=== PATIENT | female | born 1945 | race Caucasian/White ===

== ENCOUNTER → 2017-10-03 | Outpatient (RCR) | payer MEDICARE, OTHER ==
[~2017-10-03] MED LIST: ALLEGRA ALLERGY60 MG; ALLEGRA-D 12 H1 EACH PO; ALPRAZOLAM0.25 MG PO; AMLODIPINE BESYL5 MG PO; ARMOUR THYROID30 MG PO; ARMOUR THYROID60 MG PO; ASPIR 8181 MG PO; ATORVASTATIN CA40 MG PO; BRILINTA90 MG; BRILINTA90 MG PO; CLONAZEPAM0.5 MG PO; CLOTRIMAZOLE/BETAMETHASONE 45 GM CR TP ONE; COMBIVENT INH14.7 GM INH; COMBIVENT RESPIM4 GM IH; COMBIVENT RESPIM4 GM INH; CYCLOBENZAPRINE10 MG PO; DULERA 100 MCG/13 GM IH; EXCEDRIN EXTRA1 EAC1 PO; EXCEDRIN PM 501 EAC1 PO; FENOFIBRATE145 MG PO; FLUTICASONE PRO16 GM; FUROSEMIDE20 MG PO; HYDROCHLOROTHIA25 MG PO; HYDROCODON-ACE1 EAC9 PO; KEFLEX500 MG PO; LIDOCAINE VISC 2% SOLN 15 ML UDC ONE; LOVAZA1 GM PO; METFORMIN HCL500 MG PO; METOPROLOL SUCC25 MG PO; MIDODRINE HCL2.5 MG PO; MIDODRINE HCL5 MG PO; MIRAPEX0.25 MG PO; MUCINEX1200 MG PO; MUPIROCIN 2% OINT 22 GM TUBE ONE; NAPROXEN SODIU220 MG PO; NEURONTIN800 MG PO; NIACIN500 MG PO; NORCO 10-325 T1 EACH PO; OMEPRAZOLE40 MG PO; ONGLYZA5 MG PO; PRAMIPEXOLE D0.25 MG PO; PRAVACHOL20 MG PO; PRIMATENE ASTH1 EACH; PRIMATENE ASTH1 EACH PO; PRIMIDONE50 MG PO; QUETIAPINE FUMA50 MG PO; SERTRALINE HCL100 MG PO; TRAMADOL HCL100 MG PO; TRIAMCINOLONE A15 G4 TP; VERAMYST10 GM INH; WAL-PROXEN220 MG PO; ZYRTEC10 M3 PO; ZYRTEC10 MG PO
== END ==
LOC: WCC 09-07 12:09
PROVIDERS: ATTEND Family Medicine
DX: E11.622 Type 2 diabetes mellitus with other skin ulcer (principal); S51.802A Unspecified open wound of left forearm, initial encounter; S51.801A Unspecified open wound of right forearm, initial encounter; S71.102A Unspecified open wound, left thigh, initial encounter; S71.101A Unspecified open wound, right thigh, initial encounter; S81.002A Unspecified open wound, left knee, initial encounter; S81.001A Unspecified open wound, right knee, initial encounter; S81.802A Unspecified open wound, left lower leg, initial encounter; S91.002A Unspecified open wound, left ankle, initial encounter; S91.001A Unspecified open wound, right ankle, initial encounter; G89.4 Chronic pain syndrome; L27.0 Generalized skin eruption due to drugs and medicaments taken internally; D50.8 Other iron deficiency anemias; F33.1 Major depressive disorder, recurrent, moderate; I10 Essential (primary) hypertension; I25.10 Atherosclerotic heart disease of native coronary artery without angina pectoris; J44.9 Chronic obstructive pulmonary disease, unspecified; K21.9 Gastro-esophageal reflux disease without esophagitis; E03.8 Other specified hypothyroidism; G47.33 Obstructive sleep apnea (adult) (pediatric)
CPT/HCPCS: 36415; 82948

== ENCOUNTER 2017-10-31 09:26 | Outpatient (RCR) | payer MEDICARE, OTHER ==
[2017-10-17 15:13] LABS: BASOPHILS # (AUTO) 0.1 (0.0-0.1); BASOPHILS % 0.5 % (0.0-1.0); EOSINOPHILS # (AUTO) 0.2 (0.0-0.4); EOSINOPHILS % 1.8 % (0.0-6.0); HEMATOCRIT 32.3 % (34.2-44.1); HEMOGLOBIN 9.7 g/dL (12.0-16.0); LYMPHOCYTES # (AUTO) 2.4 (1.0-3.2); LYMPHOCYTES % 24.6 % (18.0-39.1); MEAN CORPUSCULAR HEMOGLOBIN 24.6 pg (28-32); MONOCYTES # (AUTO) 0.7 (0.2-0.8); MONOCYTES % 7.3 % (4.4-11.3); NEUTROPHILS # (AUTO) 6.4 (2.1-6.9); NEUTROPHILS % 65.4 % (38.7-80.0); PLATELET COUNT 370 x10e3/uL (140-360); RED BLOOD COUNT 3.94 x10e6/uL (3.6-5.1); RED CELL DISTRIBUTION WIDTH 17.7 % (11.7-14.4)
[2017-10-17 15:30] LABS: ANION GAP 11.3 mmol/L (8-16); BLOOD UREA NITROGEN 12 mg/dL (7-26); BUN/CREATININE RATIO 17 (6-25); CALCIUM 8.6 mg/dL (8.4-10.2); CARBON DIOXIDE 29 mmol/L (22-29); CHLORIDE 101 mmol/L (98-107); CREATININE, SERUM 0.71 mg/dL (0.57-1.11); EST GLOMERULAR FILTRATION RATE > 60 ML/MIN (60-); GLUCOSE 147 mg/dL (74-118); POTASSIUM 4.3 mmol/L (3.5-5.1); SODIUM 137 mmol/L (136-145)
[~2017-10-31 09:26] MED LIST changes: -CLOTRIMAZOLE/BETAMETHASONE 45 GM CR TP ONE; +COLLAGENASE OINTMENT 30 GM TUBE ONE
[2017-10-31] MEDS ORDERED: LIDOCAINE VISC 2% SOLN 15 ML UDC ONE (13:39)
[2017-10-31] MEDS ORDERED: COLLAGENASE OINTMENT 30 GM TUBE ONE (13:39)
[2017-10-31] MEDS ORDERED: MUPIROCIN 2% OINT 22 GM TUBE ONE (13:39)
== END 2017-11-03 ==
LOC: WCC 09:26
PROVIDERS: ATTEND Family Medicine
DX: E11.622 Type 2 diabetes mellitus with other skin ulcer (principal); S51.802A Unspecified open wound of left forearm, initial encounter; S51.801A Unspecified open wound of right forearm, initial encounter; S71.102A Unspecified open wound, left thigh, initial encounter; S71.101A Unspecified open wound, right thigh, initial encounter; S81.002A Unspecified open wound, left knee, initial encounter; S81.001A Unspecified open wound, right knee, initial encounter; S81.802A Unspecified open wound, left lower leg, initial encounter; S81.801A Unspecified open wound, right lower leg, initial encounter; S91.002A Unspecified open wound, left ankle, initial encounter; S91.001A Unspecified open wound, right ankle, initial encounter; F42.4 Excoriation (skin-picking) disorder; L27.0 Generalized skin eruption due to drugs and medicaments taken internally; G89.4 Chronic pain syndrome; I10 Essential (primary) hypertension; D50.8 Other iron deficiency anemias; E03.8 Other specified hypothyroidism; F33.1 Major depressive disorder, recurrent, moderate; F41.9 Anxiety disorder, unspecified; G47.33 Obstructive sleep apnea (adult) (pediatric); I25.10 Atherosclerotic heart disease of native coronary artery without angina pectoris; J44.9 Chronic obstructive pulmonary disease, unspecified; K21.9 Gastro-esophageal reflux disease without esophagitis
CPT/HCPCS: 36415; 80048; 82948; 83036; 84134; 85025; 88302; 88304

== ENCOUNTER → 2018-01-09 | Outpatient (CLI) | payer MEDICARE, OTHER ==
[~2018-01-09] MED LIST changes: -COLLAGENASE OINTMENT 30 GM TUBE ONE; +FENTANYL CITRATE/PF 100MCG/2 ML INJ ONE; -LIDOCAINE VISC 2% SOLN 15 ML UDC ONE; -MUPIROCIN 2% OINT 22 GM TUBE ONE
== END ==
LOC: MAMMO 10:26
PROVIDERS: ATTEND Internal Medicine
DX: Z12.31 Encounter for screening mammogram for malignant neoplasm of breast (principal)
CPT/HCPCS: 77067

== ENCOUNTER → 2019-02-04 | Outpatient (CLI) | payer MEDICARE, OTHER ==
[~2019-02-04] MED LIST changes: -FENTANYL CITRATE/PF 100MCG/2 ML INJ ONE
--- NOTE | 2019-02-17 08:40 | Diagnostic Imaging Report ---
#[id number] - MGSCRBIL #BILATERAL DIGITAL SCREENING MAMMOGRAM WITH CAD: 02/04/2019 CLINICAL: Routine screening. Comparison is made to exams dated: 01/09/2018 mammogram and 09/04/2016 mammogram - [facility]. Current study contains 4 films. There are scattered fibroglandular elements in both breasts. Current study was also evaluated with a Computer Aided Detection (CAD) system. There are benign vascular calcifications in both breasts. No significant masses, calcifications, or other findings are seen in either breast. IMPRESSION: BENIGN There is no mammographic evidence of malignancy. A 1 year screening mammogram is recommended. The patient will be notified by letter of the results. BETZY COLINDRES M.D. ct/penrad:02/14/2019 14:22:03 Staff Accountant: Lynda SALEH)([place]), [facility] letter sent: Normal Exam Mammogram BI-RADS: 2 Benign
== END ==
LOC: MAMMO 10:54
PROVIDERS: ATTEND Internal Medicine
DX: Z12.31 Encounter for screening mammogram for malignant neoplasm of breast (principal)
CPT/HCPCS: 77067

== ENCOUNTER 2021-05-11 08:07 | Inpatient (IN) | payer MEDICARE, OTHER ==
[~2021-05-11] VITALS: Ht 160 cm; Wt 73.5 kg
[2021-05-11] MEDS ORDERED: METHYLPREDNISOLONE SOD SUCC 125 MG/2ML VIAL IV STA (08:10)
[2021-05-11] MEDS ORDERED: IPRATROPIUM BROMIDE 0.02% 2.5 ML NEB NEB STA (08:10)
[2021-05-11] MEDS ORDERED: ALBUTEROL SULF 0.083% NEB SOLN 3 ML NEB NEB STA (08:10)
[2021-05-11 08:29] LABS: BASOPHILS % 0.2 % (0.0-1.0); HEMATOCRIT 28.2 % (34.2-44.1); LYMPHOCYTES # (AUTO) 1.8 (1.0-3.2); MEAN CORPUSCULAR HEMOGLOBIN 18.7 pg (28-32); MEAN CORPUSCULAR HGB CONC 28.4 g/dL (31-35); MEAN CORPUSCULAR VOLUME 65.9 fL (81-99); MONOCYTES # (AUTO) 1.5 (0.2-0.8); MONOCYTES % 7.5 % (4.4-11.3); NEUTROPHILS # (AUTO) 16.6 (2.1-6.9); NEUTROPHILS % 82.6 % (38.7-80.0); PLATELET COUNT 1084 x10e3/uL (140-360); RED BLOOD COUNT 4.28 x10e6/uL (3.6-5.1); RED CELL DISTRIBUTION WIDTH 23.2 % (11.7-14.4)
[2021-05-11 08:43] LABS: INR 1.99; PROTHROMBIN TIME 22.9 seconds (11.9-14.5)
[2021-05-11 08:49] LABS: ALBUMIN 3.4 g/dL (3.5-5.0); ALBUMIN/GLOBULIN RATIO 0.8 (0.8-2.0); ANION GAP 28.7 mmol/L (8-16); CALCIUM 7.6 mg/dL (8.4-10.2); CREATININE, SERUM 2.96 mg/dL (0.57-1.11); POTASSIUM 4.7 mmol/L (3.5-5.1)
[2021-05-11] MEDS ORDERED: CEFTRIAXONE 1 GM in SODIUM CHLORIDE 0.9% 50ML 50 ML IV SCH (10:00)
[2021-05-11 11:31] LABS: LYMPHOCYTES % (MANUAL) 12 % (19-48); MONOCYTES % (MANUAL) 2 % (3.4-9.0); NEUTROPHILS % (MANUAL) 85 % (40-74); NUCLEATED RED BLOOD CELLS 3; PLATELET ESTIMATE MARKEDLY INCREASED
[2021-05-11 11:32] LABS: ANISOCYTOSIS 1; HYPOCHROMASIA 2; PLATELET MORPHOLOGY COMMENT NORMAL; POIKILOCYTOSIS 1; RBC MORPHOLOGY COMMENT ABNORMAL
[2021-05-11 11:33] LABS: ELLIPTOCYTE, RBC SLIGHT; OVALOCYTES FEW
[2021-05-11] MEDS ORDERED: BUMETANIDE INJ 0.25MG/ML 4ML VIAL IV ONE (12:30)
[2021-05-11] MEDS ORDERED: Vancomycin IV 1 GM in SODIUM CHLORIDE 0.9% 250ML 250 ML IV ONE (12:30)
[2021-05-11 12:44] LABS: CREATININE,URINE RANDOM 87.81 mg/dL (47-110)
[2021-05-11 12:45] LABS: SODIUM,URINE < 20 mmol/L
[2021-05-11] MEDS ORDERED: LIDOCAINE HCL 1% LOCAL INJ 20 ML VIAL ONE (13:24)
[2021-05-11] MEDS ORDERED: HEPARIN SOD (PORCINE) 1000 UNIT/ML SDV ONE ×3 (14:00→22:58)
[2021-05-11 14:52] LABS: CLARITY,URINE SL CLOUDY (CLEAR); COLOR,URINE YELLOW (YELLOW); LEUKOCYTE ESTERASE ,URINE NEGATIVE (NEGATIVE); NITRITE,URINE NEGATIVE (NEGATIVE)
[2021-05-11 14:53] LABS: KETONES,URINE NEGATIVE (NEGATIVE); PROTEIN,URINE DIPSTICK TRACE (NEGATIVE); URINE UROBILINOGEN 0.2 mg/dL (0.2 - 1)
[2021-05-11 15:02] LABS: BACTERIA,URINE MODERATE /HPF
[2021-05-11] MEDS: STERILE WATER IV SCH (15:10)
[2021-05-11] MEDS: SODIUM BICARBONATE IV SCH (15:10)
[2021-05-11 17:13] LABS: ABG HCO3 13 mmol/L (22-26); ABG PCO2 31 mmHg (35-45); ABG PH 7.24 (7.35-7.45); ABG PO2 56 mmHg (80-105)
[2021-05-11] MEDS ORDERED: SODIUM BICARBONATE 8.4% SYRING 150 ML ONE (17:13)
[2021-05-11 17:14] LABS: ABG TCO2 14
[2021-05-11] MEDS ORDERED: SODIUM BICARBONATE 8.4% INJ 50 ML SYR IV ONE (17:15)
[2021-05-11] MEDS ORDERED: LORAZEPAM INJ 2 MG/ML VIAL IV ONE ×3 (17:15→22:45)
[2021-05-11] MEDS ORDERED: SODIUM CHLORIDE 0.9% 1000ML 1,000 ML ONE (18:53)
[2021-05-11] MEDS ORDERED: LORAZEPAM INJ 2 MG/ML VIAL ONE (21:05)
[2021-05-11 21:21] LABS: AMPHETAMINES SCREEN,URINE NEGATIVE (NEGATIVE); BENZODIAZEPINES SCREEN,URINE NEGATIVE (NEGATIVE); PHENCYCLIDINE SCREEN,URINE NEGATIVE (NEGATIVE)
[2021-05-11] MEDS ORDERED: HEPARIN SOD (PORCINE) 5,000 UNIT/ML VIAL IV ONE ×2 (22:45)
[2021-05-12] VITALS (15 sets, daily range): BP systolic 101–131; BP diastolic 41–63
[2021-05-12] MEDS: STERILE WATER IV SCH ×3 (03:34→10:53)
[2021-05-12] MEDS: MEROPENEM 500 MG in SODIUM CHLORIDE 0.9% 50ML 50 ML IV SCH ×2 (03:34→12:20)
[2021-05-12] MEDS: SODIUM BICARBONATE IV SCH ×3 (03:34→10:53)
[2021-05-12 04:59] LABS: MEAN CORPUSCULAR HGB CONC 29.5 g/dL (31-35); MEAN CORPUSCULAR VOLUME 64.4 fL (81-99); PLATELET COUNT 470 x10e3/uL (140-360); RED BLOOD COUNT 3.37 x10e6/uL (3.6-5.1)
[2021-05-12 05:00] LABS: HEMATOCRIT 21.7 % (34.2-44.1)
[2021-05-12 05:01] LABS: HEMOGLOBIN 6.4 g/dL (12.0-16.0)
[2021-05-12 05:26] LABS: ALBUMIN 2.8 g/dL (3.5-5.0); ALBUMIN/GLOBULIN RATIO 0.8 (0.8-2.0); ANION GAP 24.1 mmol/L (8-16); CALCIUM 7.4 mg/dL (8.4-10.2); CREATININE, SERUM 2.1 mg/dL (0.57-1.11); POTASSIUM 4.1 mmol/L (3.5-5.1)
[2021-05-12] MEDS: ALBUTEROL/IPRATROPIUM 3 ML NEB NEB SCH ×5 (07:25→23:05)
[2021-05-12] MEDS: INSULIN LISPRO 100 UNIT/1 ML 3ML VIAL SQ SCH ×4 (07:30→21:00)
[2021-05-12 07:41] LABS: MONOCYTES % (MANUAL) 3 % (3.4-9.0); NEUTROPHILS % (MANUAL) 97 % (40-74); PLATELET ESTIMATE ADEQUATE; PLATELET MORPHOLOGY COMMENT NORMAL; RBC MORPHOLOGY COMMENT ABNORMAL
[2021-05-12 07:42] LABS: HYPOCHROMASIA 2; POIKILOCYTOSIS SLIGHT
[2021-05-12] MEDS: THYROID 60 MG TAB PO SCH (08:00)
[2021-05-12] MEDS ORDERED: FUROSEMIDE INJ 10 MG/ML 2 ML VIAL IV SCH (09:00)
[2021-05-12] MEDS ORDERED: HOME MEDICATION--PATIENTS OWN PO SCH (09:00)
[2021-05-12] MEDS ORDERED: HYDROXYUREA 500 MG CAPSULE PO SCH (09:00)
[2021-05-12 09:56] LABS: BASOPHILS % 0.1 % (0.0-1.0); LYMPHOCYTES # (AUTO) 0.8 (1.0-3.2); LYMPHOCYTES % 3.7 % (18.0-39.1); MEAN CORPUSCULAR HEMOGLOBIN 18.8 pg (28-32); MEAN CORPUSCULAR HGB CONC 29.1 g/dL (31-35); MEAN CORPUSCULAR VOLUME 64.5 fL (81-99); MONOCYTES # (AUTO) 1.3 (0.2-0.8); MONOCYTES % 6.1 % (4.4-11.3); NEUTROPHILS # (AUTO) 19.4 (2.1-6.9); PLATELET COUNT 419 x10e3/uL (140-360); RED CELL DISTRIBUTION WIDTH 22.4 % (11.7-14.4)
[2021-05-12 10:10] LABS: HEMOGLOBIN 6.2 g/dL (12.0-16.0)
[2021-05-12 10:11] LABS: HEMATOCRIT 21.3 % (34.2-44.1)
[2021-05-12] MEDS ORDERED: SODIUM CHLORIDE 0.9% 250ML 250 ML IV ONE (11:45)
[2021-05-12] MEDS ORDERED: MAGNESIUM SULFATE 2GM/50ML 50 ML IV ONE (11:45)
[2021-05-12 11:51] LABS: ALBUMIN 2.9 g/dL (3.5-5.0)
[2021-05-12] MEDS: LORAZEPAM INJ 2 MG/ML VIAL IV PRN ×2 (15:19→20:57)
[2021-05-12] MEDS ORDERED: BUMETANIDE INJ 0.25MG/ML 4ML VIAL IV PRN (15:30)
[2021-05-13] VITALS (9 sets, daily range): BP systolic 104–160; BP diastolic 53–111
[2021-05-13] MEDS: MEROPENEM 500 MG in SODIUM CHLORIDE 0.9% 50ML 50 ML IV SCH ×2 (00:38→17:07)
[2021-05-13] MEDS: ALBUTEROL/IPRATROPIUM 3 ML NEB NEB SCH ×6 (03:20→23:45)
[2021-05-13 04:04] LABS: TOTAL IRON BINDING CAPACITY 357 ug/dL (261-478); TRANSFERRIN 255 mg/dL (180-382)
[2021-05-13 04:07] LABS: % IRON SATURATION 2 % (15-50); IRON 7 ug/dL (50-170)
[2021-05-13] MEDS: THYROID 60 MG TAB PO SCH (09:00)
[2021-05-13] MEDS: INSULIN LISPRO 100 UNIT/1 ML 3ML VIAL SQ SCH ×4 (09:14→20:54)
[2021-05-13] MEDS ORDERED: SODIUM CHLORIDE 0.9% 250ML 250 ML ONE ×2 (10:07→18:20)
[2021-05-13 10:22] LABS: MEAN CORPUSCULAR HEMOGLOBIN 18.8 pg (28-32); MEAN CORPUSCULAR HGB CONC 29.7 g/dL (31-35); MEAN CORPUSCULAR VOLUME 63.3 fL (81-99); PLATELET COUNT 315 x10e3/uL (140-360); RED BLOOD COUNT 3.19 x10e6/uL (3.6-5.1); RED CELL DISTRIBUTION WIDTH 21.9 % (11.7-14.4)
[2021-05-13 10:31] LABS: HEMATOCRIT 20.2 % (34.2-44.1)
[2021-05-13 10:55] LABS: ALBUMIN 2.7 g/dL (3.5-5.0); ALBUMIN/GLOBULIN RATIO 0.9 (0.8-2.0); ANION GAP 22.8 mmol/L (8-16); CALCIUM 7.7 mg/dL (8.4-10.2); CREATININE, SERUM 2.33 mg/dL (0.57-1.11); POTASSIUM 3.8 mmol/L (3.5-5.1)
[2021-05-13 11:40] LABS: LYMPHOCYTES % (MANUAL) 3 % (19-48); MONOCYTES % (MANUAL) 4 % (3.4-9.0); NEUTROPHILS % (MANUAL) 93 % (40-74)
[2021-05-13 11:41] LABS: PLATELET ESTIMATE ADEQUATE; PLATELET MORPHOLOGY COMMENT NORMAL; RBC MORPHOLOGY COMMENT ABNORMAL
[2021-05-13 11:42] LABS: ANISOCYTOSIS MODERATE; ELLIPTOCYTE, RBC SLIGHT; HYPOCHROMASIA MODERATE; OVALOCYTES FEW
[2021-05-13] MEDS: METOPROLOL TARTRATE INJ 1 MG/ML VIAL IV PRN (13:54)
[2021-05-13] MEDS: STERILE WATER IV SCH (14:18)
[2021-05-13] MEDS: SODIUM BICARBONATE IV SCH (14:18)
[2021-05-13] MEDS: LORAZEPAM INJ 2 MG/ML VIAL IV PRN (15:06)
[2021-05-13] MEDS ORDERED: ACETAMINOPHEN 1000 MG/100 ML IV PRN (16:00)
[2021-05-13] MEDS ORDERED: DIPHENHYDRAMINE HCL INJ 50 MG/ML VIAL IV PRN (18:15)
[2021-05-13] MEDS ORDERED: BUMETANIDE INJ 0.25MG/ML 4ML VIAL IV ONE (23:15)
[2021-05-14] VITALS (18 sets, daily range): BP systolic 115–170; BP diastolic 66–142
[2021-05-14] MEDS ORDERED: IPRATROPIUM BROMIDE 0.02% 2.5 ML NEB NEB PRN (00:30)
[2021-05-14] MEDS ORDERED: FUROSEMIDE INJ 10 MG/ML 2 ML VIAL IV ONE (00:30)
[2021-05-14] MEDS ORDERED: LEVALBUTEROL HCL SOLN NEBU 0.63 MG/3 ML NEB INH PRN (00:30)
[2021-05-14 01:07] LABS: HEMATOCRIT 32.4 % (34.2-44.1); HEMOGLOBIN 9.9 g/dL (12.0-16.0)
[2021-05-14] MEDS: ALBUTEROL/IPRATROPIUM 3 ML NEB NEB SCH ×4 (03:40→15:00)
[2021-05-14] MEDS: LORAZEPAM INJ 2 MG/ML VIAL IV PRN (04:45)
[2021-05-14] MEDS: MEROPENEM 500 MG in SODIUM CHLORIDE 0.9% 50ML 50 ML IV SCH ×2 (05:57→18:32)
[2021-05-14] MEDS: STERILE WATER IV SCH ×2 (06:44→11:15)
[2021-05-14] MEDS: SODIUM BICARBONATE IV SCH ×2 (06:44→11:15)
[2021-05-14 07:38] LABS: HEMATOCRIT 29.7 % (34.2-44.1); MEAN CORPUSCULAR HEMOGLOBIN 20.8 pg (28-32); MEAN CORPUSCULAR HGB CONC 30.3 g/dL (31-35); MEAN CORPUSCULAR VOLUME 68.6 fL (81-99); PLATELET COUNT 277 x10e3/uL (140-360); RED BLOOD COUNT 4.33 x10e6/uL (3.6-5.1)
[2021-05-14 07:57] LABS: ALBUMIN 2.7 g/dL (3.5-5.0); ALBUMIN/GLOBULIN RATIO 0.8 (0.8-2.0); ANION GAP 19.5 mmol/L (8-16); CALCIUM 8.3 mg/dL (8.4-10.2); CREATININE, SERUM 1.68 mg/dL (0.57-1.11); POTASSIUM 3.5 mmol/L (3.5-5.1)
[2021-05-14] MEDS ORDERED: IRON SUCROSE 100 MG in SODIUM CHLORIDE 0.9% 100 ML 100 ML IV SCH (09:00)
[2021-05-14] MEDS: THYROID 60 MG TAB PO SCH (09:00)
[2021-05-14] MEDS: INSULIN LISPRO 100 UNIT/1 ML 3ML VIAL SQ SCH ×4 (09:29→21:00)
[2021-05-14 10:13] LABS: EOSINOPHILS % (MANUAL) 1 % (0-7); LYMPHOCYTES % (MANUAL) 9 % (19-48); MONOCYTES % (MANUAL) 4 % (3.4-9.0); NEUTROPHILS % (MANUAL) 86 % (40-74); NUCLEATED RED BLOOD CELLS 1; PLATELET ESTIMATE ADEQUATE; PLATELET MORPHOLOGY COMMENT NORMAL
[2021-05-14 10:14] LABS: HYPOCHROMASIA MODERATE; MICROCYTOSIS SLIGHT; RBC MORPHOLOGY COMMENT NORMAL
[2021-05-14] MEDS ORDERED: POTASSIUM CHLORIDE 20MEQ/100ML 100 ML IV ONE (11:00)
[2021-05-14] MEDS ORDERED: BUMETANIDE INJ 0.25MG/ML 4ML VIAL IV SCH (11:00)
[2021-05-14] MEDS: METOPROLOL TARTRATE INJ 1 MG/ML VIAL IV PRN (11:04)
[2021-05-14] MEDS ORDERED: SODIUM CHLORIDE 0.9% 250ML 250 ML ONE (11:05)
[2021-05-14] MEDS: LEVALBUTEROL HCL SOLN NEBU 0.63 MG/3 ML NEB INH SCH ×4 (11:15→23:00)
[2021-05-14] MEDS: IRON SUCROSE 100 MG in SODIUM CHLORIDE 0.9% 100 ML 100 ML IV SCH (14:50)
[2021-05-14] MEDS ORDERED: RISPERIDONE 0.5 MG TAB PO PRN (15:30)
[2021-05-14] MEDS ORDERED: DEXMEDETOMIDINE 400MCG/NS100ML 100 ML IV PRN (15:30)
[2021-05-14] MEDS: DEXTROSE 50% SYRINGE 50 ML IV PRN ×2 (17:00→22:40)
[2021-05-14 17:39] LABS: ABG PCO2 52 mmHg (35-45); ABG PH 7.42 (7.35-7.45); ABG PO2 61 mmHg (80-105)
[2021-05-14 17:40] LABS: ABG HCO3 34 mmol/L (22-26); ABG TCO2 36
[2021-05-14] MEDS: METOPROLOL TARTRATE INJ 1 MG/ML VIAL IV SCH ×2 (17:45→23:00)
[2021-05-14] MEDS ORDERED: METOPROLOL TARTRATE 25 MG TAB PO SCH (18:00)
[2021-05-14] MEDS ORDERED: ACETAMINOPHEN 1000 MG/100 ML 100 ML IV ONE (22:06)
[2021-05-14] MEDS: ACETAMINOPHEN 1000 MG/100 ML IV PRN (22:40)
[2021-05-15] VITALS (25 sets, daily range): BP systolic 89–155; BP diastolic 29–114
[2021-05-15 02:11] LABS: ANION GAP 29.1 mmol/L (8-16); CALCIUM 8.3 mg/dL (8.4-10.2); CREATININE, SERUM 1.51 mg/dL (0.57-1.11); MAGNESIUM 1.3 MG/DL (1.3-2.1); POTASSIUM 4.1 mmol/L (3.5-5.1)
[2021-05-15] MEDS: LEVALBUTEROL HCL SOLN NEBU 0.63 MG/3 ML NEB INH SCH ×4 (03:45→22:47)
[2021-05-15] MEDS: STERILE WATER IV SCH (03:50)
[2021-05-15] MEDS: SODIUM BICARBONATE IV SCH (03:50)
[2021-05-15] MEDS: METOPROLOL TARTRATE INJ 1 MG/ML VIAL IV SCH ×6 (03:50→22:51)
[2021-05-15] MEDS ORDERED: SODIUM BICARBONATE 8.4% SYRING 0 ML ONE (04:03)
[2021-05-15] MEDS: DEXTROSE 50% SYRINGE 50 ML IV PRN ×3 (04:10→20:13)
[2021-05-15] MEDS: MEROPENEM 500 MG in SODIUM CHLORIDE 0.9% 50ML 50 ML IV SCH ×2 (06:26→18:29)
[2021-05-15] MEDS: ALBUTEROL/IPRATROPIUM 3 ML NEB NEB SCH ×2 (07:00→11:00)
[2021-05-15] MEDS: INSULIN LISPRO 100 UNIT/1 ML 3ML VIAL SQ SCH ×5 (07:30→21:00)
[2021-05-15 08:31] LABS: BASOPHILS % 0.2 % (0.0-1.0); EOSINOPHILS # (AUTO) 0.1 (0.0-0.4); EOSINOPHILS % 0.4 % (0.0-6.0); HEMATOCRIT 31.6 % (34.2-44.1); HEMOGLOBIN 9.3 g/dL (12.0-16.0); LYMPHOCYTES # (AUTO) 1.1 (1.0-3.2); LYMPHOCYTES % 7.9 % (18.0-39.1); MEAN CORPUSCULAR HEMOGLOBIN 20.7 pg (28-32); MEAN CORPUSCULAR HGB CONC 29.4 g/dL (31-35); MEAN CORPUSCULAR VOLUME 70.4 fL (81-99); MONOCYTES # (AUTO) 0.4 (0.2-0.8); MONOCYTES % 3.1 % (4.4-11.3); NEUTROPHILS # (AUTO) 11.9 (2.1-6.9); NEUTROPHILS % 87.7 % (38.7-80.0); PLATELET COUNT 150 x10e3/uL (140-360); RED BLOOD COUNT 4.49 x10e6/uL (3.6-5.1)
[2021-05-15] MEDS: THYROID 60 MG TAB PO SCH (08:47)
[2021-05-15] MEDS: BUMETANIDE 1 MG TAB PO SCH (08:47)
[2021-05-15 08:50] LABS: ANION GAP 30.1 mmol/L (8-16); CALCIUM 8.1 mg/dL (8.4-10.2); CREATININE, SERUM 1.48 mg/dL (0.57-1.11); POTASSIUM 4.1 mmol/L (3.5-5.1)
[2021-05-15 10:08] LABS: ABG PCO2 53 mmHg (35-45); ABG PH 7.38 (7.35-7.45)
[2021-05-15 10:09] LABS: ABG HCO3 32 mmol/L (22-26); ABG PO2 68 mmHg (80-105); ABG TCO2 33
[2021-05-15] MEDS ORDERED: LEVALBUTEROL HCL SOLN NEBU 0.63 MG/3 ML NEB ONE ×2 (11:37→15:08)
[2021-05-15] MEDS: ACETAMINOPHEN 1000 MG/100 ML IV PRN (12:00)
[2021-05-15] MEDS: IRON SUCROSE 100 MG in SODIUM CHLORIDE 0.9% 100 ML 100 ML IV SCH (12:07)
[2021-05-15] MEDS: BUMETANIDE INJ 0.25MG/ML 4ML VIAL IV SCH (14:08)
[2021-05-16] VITALS (19 sets, daily range): BP systolic 58–158; BP diastolic 22–100
[2021-05-16] MEDS: BUMETANIDE INJ 0.25MG/ML 4ML VIAL IV SCH ×2 (01:34→13:33)
[2021-05-16] MEDS: METOPROLOL TARTRATE INJ 1 MG/ML VIAL IV SCH ×4 (02:40→14:39)
[2021-05-16] MEDS: LEVALBUTEROL HCL SOLN NEBU 0.63 MG/3 ML NEB INH SCH (03:10)
[2021-05-16 05:03] LABS: BASOPHILS % 0.2 % (0.0-1.0); EOSINOPHILS # (AUTO) 0.3 (0.0-0.4); EOSINOPHILS % 1.8 % (0.0-6.0); HEMATOCRIT 36.9 % (34.2-44.1); HEMOGLOBIN 11.2 g/dL (12.0-16.0); LYMPHOCYTES # (AUTO) 1.6 (1.0-3.2); LYMPHOCYTES % 8.3 % (18.0-39.1); MEAN CORPUSCULAR HGB CONC 30.4 g/dL (31-35); MEAN CORPUSCULAR VOLUME 69.1 fL (81-99); MONOCYTES # (AUTO) 0.4 (0.2-0.8); MONOCYTES % 1.9 % (4.4-11.3); NEUTROPHILS # (AUTO) 16.5 (2.1-6.9); PLATELET COUNT 95 x10e3/uL (140-360); RED BLOOD COUNT 5.34 x10e6/uL (3.6-5.1); RED CELL DISTRIBUTION WIDTH 28.1 % (11.7-14.4)
[2021-05-16 05:32] LABS: ALBUMIN 2.3 g/dL (3.5-5.0); ALBUMIN/GLOBULIN RATIO 0.7 (0.8-2.0); ANION GAP 18.4 mmol/L (8-16); CALCIUM 7.9 mg/dL (8.4-10.2); CREATININE, SERUM 1.52 mg/dL (0.57-1.11); POTASSIUM 3.4 mmol/L (3.5-5.1)
[2021-05-16] MEDS: MEROPENEM 500 MG in SODIUM CHLORIDE 0.9% 50ML 50 ML IV SCH ×2 (06:32→17:54)
[2021-05-16] MEDS: INSULIN LISPRO 100 UNIT/1 ML 3ML VIAL SQ SCH ×3 (06:33→16:30)
[2021-05-16] MEDS: ALBUTEROL/IPRATROPIUM 3 ML NEB NEB SCH ×3 (07:13→15:00)
[2021-05-16] MEDS ORDERED: LEVALBUTEROL HCL SOLN NEBU 0.63 MG/3 ML NEB ONE ×3 (07:19→15:36)
[2021-05-16] MEDS: THYROID 60 MG TAB PO SCH (08:33)
[2021-05-16] MEDS: BUMETANIDE 1 MG TAB PO SCH (08:33)
[2021-05-16 09:08] LABS: PLATELET ESTIMATE MODERATELY DECREASED
[2021-05-16 09:09] LABS: PLATELET MORPHOLOGY COMMENT NORMAL
[2021-05-16 09:10] LABS: ANISOCYTOSIS MODERATE; HYPOCHROMASIA MODERATE; RBC MORPHOLOGY COMMENT ABNORMAL
[2021-05-16 09:11] LABS: ELLIPTOCYTE, RBC SLIGHT; MICROCYTOSIS SLIGHT; POIKILOCYTOSIS MODERATE
[2021-05-16] MEDS: IRON SUCROSE 100 MG in SODIUM CHLORIDE 0.9% 100 ML 100 ML IV SCH (11:08)
[2021-05-16] MEDS ORDERED: POTASSIUM CHLORIDE 20MEQ/100ML 100 ML IV ONE (12:00)
[2021-05-16] MEDS: ACETAMINOPHEN 1000 MG/100 ML IV PRN (12:06)
[2021-05-16] MEDS ORDERED: IBUPROFEN 800MG/ 200ML 200 ML IV ONE (15:45)
[2021-05-16] MEDS ORDERED: NOREPINEPHRINE 8 MG/D5W 250 ML 250 ML ONE (16:01)
[2021-05-16] MEDS ORDERED: VASOPRESSIN 60 UNIT in DEXTROSE 5% 50ML 57 ML IV SCH (16:15)
[2021-05-16] MEDS ORDERED: PROPOFOL IV EMULSION 10MG/ML 100 ML IV SCH (16:15)
[2021-05-16 17:05] LABS: ABG HCO3 33 mmol/L (22-26); ABG PCO2 51 mmHg (35-45); ABG PH 7.42 (7.35-7.45); ABG PO2 293 mmHg (80-105); ABG TCO2 34
[2021-05-16] MEDS ORDERED: LORAZEPAM INJ 2 MG/ML VIAL IV PRN (17:30)
[2021-05-16] MEDS ORDERED: MORPHINE SULFATE INJ 4 MG/ML INJ 1ML IV PRN (17:30)
== END 2021-05-16 21:15 | disposition expired | DRG 871 ==
LOC: ER 08:10 → ERHOLD 08:13 → IMCU 05-12 02:58 → ICU 05-14 18:07
PROVIDERS: ADMIT Internal Medicine; ATTEND Internal Medicine
PROC: 02HV33Z Insertion of Infusion Device into Superior Vena Cava, Percutaneous Approach (ICD-10-PCS; principal; 2021-05-11)
PROC: 02HV33Z Insertion of Infusion Device into Superior Vena Cava, Percutaneous Approach (ICD-10-PCS; 2021-05-11)
PROC: 30243N1 Transfusion of Nonautologous Red Blood Cells into Central Vein, Percutaneous Approach (ICD-10-PCS; 2021-05-13)
PROC: 5A1D70Z Performance of Urinary Filtration, Intermittent, Less than 6 Hours Per Day (ICD-10-PCS; 2021-05-13)
PROC: 5A09557 Assistance with Respiratory Ventilation, Greater than 96 Consecutive Hours, Continuous Positive Airway Pressure (ICD-10-PCS; 2021-05-13)
PROC: 02HV33Z Insertion of Infusion Device into Superior Vena Cava, Percutaneous Approach (ICD-10-PCS; 2021-05-14)
PROC: 5A12012 Performance of Cardiac Output, Single, Manual (ICD-10-PCS; 2021-05-16)
PROC: 0BH18EZ Insertion of Endotracheal Airway into Trachea, Via Natural or Artificial Opening Endoscopic (ICD-10-PCS; 2021-05-16)
PROC: 5A1935Z Respiratory Ventilation, Less than 24 Consecutive Hours (ICD-10-PCS; 2021-05-16)
DX: A41.9 Sepsis, unspecified organism (principal); J96.01 Acute respiratory failure with hypoxia; I50.43 Acute on chronic combined systolic (congestive) and diastolic (congestive) heart failure; G92.8 Other toxic encephalopathy; G93.41 Metabolic encephalopathy; J69.0 Pneumonitis due to inhalation of food and vomit; K72.00 Acute and subacute hepatic failure without coma; C94.6 Myelodysplastic disease, not elsewhere classified; N17.9 Acute kidney failure, unspecified; L97.829 Non-pressure chronic ulcer of other part of left lower leg with unspecified severity; L97.819 Non-pressure chronic ulcer of other part of right lower leg with unspecified severity; I13.0 Hypertensive heart and chronic kidney disease with heart failure and stage 1 through stage 4 chronic kidney disease, or unspecified chronic kidney disease; F03.91 Unspecified dementia, unspecified severity, with behavioral disturbance; I46.9 Cardiac arrest, cause unspecified; F25.9 Schizoaffective disorder, unspecified; K21.9 Gastro-esophageal reflux disease without esophagitis; Z86.73 Personal history of transient ischemic attack (TIA), and cerebral infarction without residual deficits; Z96.651 Presence of right artificial knee joint; R45.88 Nonsuicidal self-harm; Z89.422 Acquired absence of other left toe(s); E78.5 Hyperlipidemia, unspecified; M17.11 Unilateral primary osteoarthritis, right knee; Z79.84 Long term (current) use of oral hypoglycemic drugs; R65.20 Severe sepsis without septic shock; D50.0 Iron deficiency anemia secondary to blood loss (chronic); K76.1 Chronic passive congestion of liver; E88.09 Other disorders of plasma-protein metabolism, not elsewhere classified; D69.59 Other secondary thrombocytopenia; I25.10 Atherosclerotic heart disease of native coronary artery without angina pectoris; Z95.5 Presence of coronary angioplasty implant and graft; E11.22 Type 2 diabetes mellitus with diabetic chronic kidney disease; N18.9 Chronic kidney disease, unspecified; G89.4 Chronic pain syndrome
CPT/HCPCS: 31720; 36415; 36556; 36569; 36600; 51700; 70450; 71045; 71250; 74470; 76700; 76770; 76937; 77001; 78580; 80048; 80053; 80076; 80307; 81001; 82570; 82607; 82728; 82746; 82805; 82948; 83540; 83605; 83735; 83880; 84100; 84300; 84466; 84484; 85007; 85014; 85018; 85025; 85027; 85045; 85379; 85610; 86704; 86706; 86850; 86870; 86880; 86900; 86905; 86920; 87040; 87086; 87340; 90962; 92950; 93005; 93306; 94002; 94640; 94660; 99001; 99251; 99284; A9540; J0456; J0696; J1644; J1756; J1940; J2001; J2060; J2185; J2270; J2930; J3370; J3475; J3480; J7030; J7050; J7799; P9016; U0002